=== PATIENT | female | born 1930 | race Caucasian/White ===

== ENCOUNTER → 2016-06-13 | Emergency (ER) | payer MEDICARE, OTHER ==
[~2016-06-13] MED LIST: ASPIRIN325 MG PO; BENZONATATE100 MG PO; CALCIUM WITH M1 EACH PO; CENTRUM SILVER1 TAB PO; COLACE100 MG PO; COSAMIN DS CAP1 EACH PO; CYCLOBENZAPRINE5 MG PO; DEXILANT60 MG PO; FEOSOL325 MG PO; FLONASE ALLER15.8 ML NOSE; LEVOTHROID (SY50 MCG PO; LYRICA 75MG CAP75 MG PO; LYRICA75 MG PO; MIRALAX17 GM PO; NORCO 5-325 TA1 EACH PO; PRESERVISION A1 EACH PO; TYLENOL325 MG PO; VITAMIN D31000 UNI1 PO; XARELTO10 MG PO; ZYRTEC10 MG PO
== END | disposition disaster alternative care site (69) ==
LOC: GAMB 10:42
DX: S09.90XA Unspecified injury of head, initial encounter (principal); R51 Headache; G89.11 Acute pain due to trauma; W19.XXXA Unspecified fall, initial encounter

== ENCOUNTER 2016-07-04 11:00 | Inpatient (IN) | payer MEDICARE, OTHER ==
[~2016-07-04] VITALS: Ht 154.9 cm; Wt 62.5 kg
--- NOTE | ~2016-07-04 | DS ---
PATIENT'S NAME: RONY MOURALMA Norma [facility] AGE: 85 Y [address] ROOM: [place] [address] LOCATION: [facility] ADMIT DATE: 07/16/2016 Discharge Summary DISCHARGE DATE: 07/18/2016 FAMILY PHYSICIAN: Immanuel Chaudhary MD ATTENDING PHYSICIAN: Juan Curran PRIMARY DIAGNOSIS: Degenerative joint disease of the right knee. SECONDARY DIAGNOSIS: 1. History of preoperative anemia. 2. Chronic kidney disease, stage 3. 3. Chronic obstructive pulmonary disease. 4. Gastroesophageal reflux disease. 5. History of gastrointestinal bleed. 6. Hypertension. 7. Hypothyroidism. 8. History of iron deficiency anemia. 9. History of paroxysmal atrial fibrillation. 10. History of nocturnal hypoxia. PROCEDURE PERFORMED: Right total knee arthroplasty with computer navigation. HISTORY: The patient is an 85-year-old female, who presents with advanced right knee degenerative joint disease and associated severely compromised activities of daily living. The patient has decided to proceed with total knee arthroplasty after having been thoroughly counseled regarding the risks, benefits, limitations and alternatives. Please refer to the outpatient clinic notes and admission history and physical for this patient. HOSPITAL COURSE: The patient underwent a right total knee arthroplasty on 07/16/2016 without complications. General endotracheal anesthesia plus adductor canal block plus periarticular local anesthesia was utilized. The patient received 24 hours of perioperative prophylactic antibiotics and remained hemodynamically stable, neurovascularly intact throughout the entire hospital course. The postoperative prophylactic deep venous thrombosis prophylaxis consisted of Xarelto 10 mg, early mobilization and pneumatic compression devices. Daily physical therapy for gait training, transfer training range of motion and quadriceps isometric exercises were received. The patient progressed well in physical therapy. On the date of discharge, 08/17/2016, the incision at the knee was healing well and showed no signs of infection. DISPOSITION: Home. DISCHARGE ACTIVITY: The patient is to bear weight as tolerated with range of PATIENT'S NAME: [facility]MAN [facility] AGE: 85 Y [address] ROOM: [place] [address] LOCATION: [facility] ADMIT DATE: 07/16/2016 Discharge Summary DISCHARGE DATE: 07/18/2016 FAMILY PHYSICIAN: Immanuel Chaudhary MD ATTENDING PHYSICIAN: Juan Curran motion and quadriceps isometric exercises as instructed. The operative extremity is to be elevated at least 90% of the day. There is to be sterile 4x4 gauze dressings to the incision daily. Dr. Curran is to be notified immediately if there is any increased pain, fevers, chills erythema or drainage. DISCHARGE MEDICATIONS: Include: 1. Xarelto 10 mg, take one tab p.o. daily for DVT prevention. 2. Effie 5/325, take one tab p.o. every 3 hours as needed for pain. FOLLOWUP: Followup appointment is to be with Dr. Curran on Saturday, July 23, 2016, for initial postoperative evaluation with x-rays and for staple removal. RICHARD JOHNSON FOR MD DERIK SAMUEL/markusl /[id number] d: 07/24/16 0407 t: 07/26/16 0945, DISCHARGE SUMMARY
--- NOTE | ~2016-07-04 | OR ---
PATIENT'S NAME: SABRINA MOURA [facility] AGE: 85 Y [address] ROOM: [place] [address] LOCATION: [facility] ADMIT DATE: 07/16/2016 OR/Procedure Report DISCHARGE DATE: FAMILY PHYSICIAN: Immanuel Chaudhary MD ATTENDING PHYSICIAN: AYANA WELCH SURGEON: Ayana Welch MD HOOP RIVETING MACHINE OPERATOR HELPER: 1. Clemente Diaz CST/GUZMAN. 2. Ayana Madden. DATE OF PROCEDURE: 07/16/2016 PREOPERATIVE DIAGNOSIS: Degenerative joint disease, right knee. POSTOPERATIVE DIAGNOSIS: Degenerative joint disease, right knee. OPERATION: Right total knee arthroplasty with computer navigation. ANESTHESIA: General endotracheal anesthesia plus adductor canal block plus periarticular local anesthesia (ropivacaine with epinephrine and Toradol). ESTIMATED BLOOD LOSS: Less than 10 mL. DRAIN: None. SPECIMEN: None. COMPLICATIONS: None. IMPLANT SYSTEM: Nando Triathlon. 1. Size 3 right posterior stabilized femoral component. 2. Size 2 universal modular tibial baseplate. 3. A 9 mm posterior stabilized size 2 X3 tibial polyethylene insert. 4. A 29 mm oval X3 patella component. INDICATIONS FOR SURGERY: Ms. [place] Moura is an 85-year-old female who presents with advanced right knee degenerative joint disease and associated severely compromised activities of daily living. The patient has decided to proceed with knee replacement after having been thoroughly counseled regarding the associated risks, benefits, and limitations. We have specifically reviewed the risks and implications of infection, deep venous thrombosis, pulmonary embolism, mortality, neurovascular complications, blood transfusion (and associated potential for disease transmission or transfusion reaction), stiffness, instability, mechanical deterioration of the components (due to wear and or loosening), and the potential need for revision. We have also emphasized the importance of active involvement and compliance with post- operative physical therapy as a means of optimizing range of motion and PATIENT'S NAME: S[place] MOURA [facility] AGE: 85 Y [address] ROOM: [place] [address] LOCATION: [facility] ADMIT DATE: 07/16/2016 OR/Procedure Report DISCHARGE DATE: FAMILY PHYSICIAN: Immanuel Chaudhary MD ATTENDING PHYSICIAN: AYANA WELCH functional recovery. Informed consent has been granted. DESCRIPTION OF PROCEDURE: The patient was positioned supine after administration of anesthesia and prophylactic antibiotics. A well-padded pneumatic tourniquet was placed around the right proximal thigh, and the right lower extremity was prepped and draped with vigilant sterile technique. The patient's name as well as the intended operative side and procedure were confirmed with a verbal time-out involving myself, the circulating nurse, the scrub nurse, and the anesthesiologist. Examination under anesthesia demonstrated a moderate valgus deformity. There were no active skin lesions or masses. There was a moderate effusion. There was no erythema. There was no abnormal warmth. Range of motion under anesthesia was from 6 degrees of passive hyperextension to 120 degrees of flexion. There was 5 mm of medial collateral ligament laxity. The valgus deformity was almost completely passively correctable. There was no other ligamentous laxity. The right lower extremity was elevated and exsanguinated with an Esmarch wrap, and the pneumatic tourniquet was inflated to 300mmHg. The knee was approached through a longitudinal midline incision. A medial parapatellar arthrotomy was performed and the patella was everted. Examination of the joint space demonstrated full-thickness loss of articular cartilage throughout the patella and throughout the lateral 75% of the femoral trochlea. There was extensive erosion of subchondral bone from the patella and the lateral trochlea with longitudinal subchondral striations of eburnated bone yielding a corduroy appearance. The residual [place] patella was only 10 mm thick at the lateral facet. The lateral femoral condyle was moderately hypoplastic. There was significant patella frankie. There was significant tightness of the lateral retinaculum. The anterior cruciate ligament was intact, but attenuated. The posterior cruciate ligament was intact. There was a moderate amount of benign- appearing translucent synovial fluid. There was extensive chondrocalcinosis at the residual articular cartilage at the medial aspect of the femoral trochlea. There was a moderate-sized osteophyte at the lateral margin of the patella. There were small osteophytes at the lateral femoral condyle and the lateral margin of the femoral trochlea. There was a 5 x 20 mm region of full- thickness articular cartilage loss at the lateral half of the medial femoral condyle. There was intermixed grade 3 and grade 4 articular cartilage degeneration at the posterior half of the lateral femoral condyle. There were moderate grade 3 degenerative changes involving 90% of the lateral tibial plateau. There was extensive chondrocalcinosis at the medial and lateral meniscal remnants as well as at the medial femoral condyle. There was extensive degenerative tearing involving the anterior half of the lateral meniscus. PATIENT'S NAME: SABRINA MOURA [facility] AGE: 85 Y [address] ROOM: [id number] [place], [place] [address] LOCATION: [facility] ADMIT DATE: 07/16/2016 OR/Procedure Report DISCHARGE DATE: FAMILY PHYSICIAN: Immanuel Chaudhary MD ATTENDING PHYSICIAN: AYANA WELCH Remnants of the menisci and cruciate ligaments were excised. The [employer] computer navigation femoral tracker was pinned in place at the distal aspect of the femoral trochlea. Absence of motion between the femur and the tracking device was confirmed manually and visually. Femoral osseous landmarks were obtained in order to calibrate the computer navigation system. Landmarks included the center of rotation of the ipsilateral hip, the center-point of the distal femur, the femoral AP axis, 57 points on the medial femoral condyle articular surface, and 57 points on the lateral femoral condyle articular surface. The [employer] computer navigation system was subsequently utilized to position the distal femoral resection block such that the distal femoral resection was performed perfectly perpendicular to the femoral mechanical axis. The distal femoral resection was performed with a [employer] oscillating saw. The [employer] computer navigation tibial tracker was pinned in place at the anterior aspect of the tibial plateau. Absence of motion between the tibia and the tracking device was confirmed manually and visually. Tibial osseous landmarks were obtained in order to calibrate the computer navigation system. Landmarks included the center-point of the tibial plateau, the AP tibial axis, 57 points on the medial tibial plateau articular surface, 57 points on the lateral tibial plateau articular surface, the medial malleolus, and the lateral malleolus. The [employer] computer navigation system was subsequently utilized to position the proximal tibial resection block such that the proximal tibial resection was performed perfectly perpendicular to the tibial mechanical axis. The proximal tibial resection was performed with a [employer] oscillating saw. Perpendicularity of the tibial resection with respect to the tibial shaft axis was reconfirmed by inserting a spacer- block attached to an extramedullary guide zeb. External rotation of the anterior and posterior femoral resections was set parallel to the epicondylar axis and carefully adjusted in order to create a rectangular flexion gap. The box resection was performed with a reciprocating saw. Anterior and posterior chamfer resections were performed with the oscillating saw. Posterior condyle osteophytes were excised with an osteotome. All other osteophytes were excised with a rongeur. Resection of all remnants of the menisci was reconfirmed. Flexion and extension gaps were confirmed to be symmetric and well balanced with a spacer-block technique. The patella resection was performed with an oscillating saw such that the composite thickness of the reconstructed patella was equivalent to the thickness of the [place] patella. Patella tracking was confirmed to be optimal. A lateral retinacular release was required in order to optimize patella tracking. PATIENT'S NAME: SABRINA MOURA [facility] AGE: 85 Y [address] ROOM: [address] [address] LOCATION: [facility] ADMIT DATE: 07/16/2016 OR/Procedure Report DISCHARGE DATE: FAMILY PHYSICIAN: Immanuel Chaudhary MD ATTENDING PHYSICIAN: AYANA WELCH All trial components were removed and all prepared osseous surfaces were thoroughly irrigated with pulsatile saline lavage and dried prior to cementing all three components in a single stage using [employer] Simplex cement containing pre-mixed tobramycin. All extruded excess cement was removed. The entire joint space was thoroughly inspected and thoroughly irrigated with bacteriostatic pulsatile saline lavage to assure that there was no residual debris of any sort. Final range of motion was from full extension (with no residual passive hyperextension) to 120 degrees of flexion. Patella tracking was reconfirmed to be optimal. There was very good anteroposterior stability at 90 degrees of flexion. There was 1.5 mm of medial lift-off to valgus stress in full extension. There was 1 mm of lateral lift-off to varus stress in full extension. The arthrotomy was closed with multiple simple and [id number] interrupted #1 Vicryl. Subcutaneous tissues were thoroughly re-irrigated with bacteriostatic pulsatile saline lavage. Subcutaneous tissues were re- approximated with simple buried interrupted #0 Vicryl sutures. The skin was closed with simple buried interrupted 2-0 Vicryl sutures followed by surgical brenda. The dressing consisted of Xeroform gauze, 4x4 gauze, ABD pads and two 6-inch Ariel Wraps. There were no intra-operative complications. MD BRUCE SAMUEL/grace /[id number] d: 07/16/16 1731 t: 07/24/16 0715, OPERATIVE SUMMARY
[~2016-07-04 11:00] MED LIST changes: -COLACE100 MG PO; -FEOSOL325 MG PO; -MIRALAX17 GM PO; -NORCO 5-325 TA1 EACH PO; -TYLENOL325 MG PO; -XARELTO10 MG PO
--- NOTE | 2016-07-16 16:02 | NUR ---
PATIENT RETURNED FROM PACU AT 1215. VSS. O2 AT 4L/MIN TO MAINTAIN SATS. PATIENT HAS HX OF SLEEP APNEA. CSM ADEQUATE. NILSON WRAP D/I. NORCO ONE TAB AT 1445. UP TO CHAIR. HAD GENERAL ANESTHESIA. PERIODS OF FORGETFULLNESS, ORIENATED. FAMILY IN ROOM.
--- NOTE | 2016-07-17 03:52 | NUR ---
Patient VS stable throughout shift. Back pain relieved by tylenol. Family reports patient has sleep apnea. Patient on 2L 02. Started on ETCO2 at 1930. Can dorsiflex, plantarflex and wiggle toes appropriately. Patient up to comode 2X and voided 380mls in total. At 0100 patient experiences knee jerks on left knee and tingling on both toes. Valium given for this. Last dose of tylenol at 0003.
[2016-07-17 06:58] LABS: BASOPHIL % 0.3 %; EOSINOPHIL # 0.1 K/uL (0.0-0.5); EOSINOPHIL % 0.4 %; HEMOGLOBIN 7.5 g/dL (10.0-15.0); IMMATURE GRANULOCYTE # 0.1 K/uL (0.0-0.3); IMMATURE GRANULOCYTE % 0.5 %; LYMPHOCYTE # 1.4 K/uL (0.8-4.0); LYMPHOCYTE % 12.4 %; MCH 26.1 pg (27.0-34.0); MCHC 31.3 gm/dL (32.0-36.5); MCV 83.6 fl (83.0-98.0); MONOCYTE # 0.9 K/uL (0.0-1.0); MONOCYTE % 7.4 %; NEUTROPHIL # (ANC) 9.2 K/uL (1.8-7.8); NRBC % 0 /100WBC (0-0.00); PLATELET COUNT 239 K/uL (150-450); RBC 2.87 M/uL (3.00-5.00); RDW-CV 14.9 % (11.9-14.6); WBC 11.6 K/uL (4.0-11.0)
--- NOTE | 2016-07-17 11:50 | NUR ---
Introduced self/role to patient. She stated she has all the DME she will need and has plenty of family around to assist her. Wrote my name on her marker board, will continue to follow.
--- NOTE | 2016-07-17 17:01 | NUR ---
PATIENT DOING WELL. CSM ADEQUATE. WEARS O2 AT NIGHT 2L/MIN. KPAD TO LEFT SHOULDER FOR DISCOMFORT. ONE UNIT OF BLOOD TODAY FOR HGB 7.5. PLANS ON GOING HOME WITH DAUGHTER TOMORROW. DRESSING D/I. AMBULATED TO BR.
--- NOTE | 2016-07-18 05:08 | NUR ---
Significant Event: Dressing is clean, dry and intact. CSM WNL. Voids without difficulty. Refused Miralax. 1 assist with transfers. Valium 2.5mg at 0016. Dilaudid IV at 0017. Wears 2 L of oxygen at night. Toes are numb, patient states that this is not new. Follow up:
[2016-07-18 05:34] LABS: BASOPHIL % 0.5 %; EOSINOPHIL # 0.1 K/uL (0.0-0.5); EOSINOPHIL % 1.7 %; HEMATOCRIT 26.5 % (30.0-46.0); HEMOGLOBIN 8.6 g/dL (10.0-15.0); IMMATURE GRANULOCYTE % 0.4 %; LYMPHOCYTE # 1.2 K/uL (0.8-4.0); LYMPHOCYTE % 14.9 %; MCHC 32.5 gm/dL (32.0-36.5); MCV 83.1 fl (83.0-98.0); MONOCYTE # 1.1 K/uL (0.0-1.0); MPV 9.9 fl (9.4-12.4); NEUTROPHIL # (ANC) 5.4 K/uL (1.8-7.8); NEUTROPHIL % 68.5 %; NRBC % 0 /100WBC (0-0.00); PLATELET COUNT 206 K/uL (150-450); RBC 3.19 M/uL (3.00-5.00); RDW-CV 15.2 % (11.9-14.6); WBC 7.8 K/uL (4.0-11.0)
[2016-07-18 05:47] LABS: ANION GAP 13.2 (10.0-19.0); CALCIUM 8.2 mg/dL (8.5-10.5); CREATININE 1.2 mg/dL (0.5-1.1); POTASSIUM 4.2 mMol/L (3.7-5.1)
[2016-07-18] MEDS ORDERED: COLACE100 MG PO (14:52)
[2016-07-18] MEDS ORDERED: MIRALAX17 GM PO (14:55)
[2016-07-18] MEDS ORDERED: XARELTO10 MG PO (14:56)
[2016-07-18] MEDS ORDERED: TYLENOL325 MG PO (14:57)
[2016-07-18] MEDS ORDERED: FEOSOL325 MG PO (14:58)
[2016-07-18] MEDS ORDERED: NORCO 5-325 TA1 EACH PO (15:13)
--- NOTE | 2016-07-18 17:51 | NUR ---
Discharge instructions given to patient and her daughter. Reviewed all medications, care of dressing, s/s infection, when to call md, f/u appt, O2 @ home: 1 L during day, 2L @ hs. Has O2 @ home already. All belongings sent with patient. All questions answered. Encouraged to call md with any questions. Daughter voices understanding of all insturctions. States she has attended class and talked with
== END 2016-07-18 17:08 | disposition disaster alternative care site (69) | DRG 470 ==
LOC: G3N 07-16 06:16
PROVIDERS: Family Medicine; ADMIT Orthopaedic Surgery
PROC: 0SRC0J9 Replacement of Right Knee Joint with Synthetic Substitute, Cemented, Open Approach (ICD-10-PCS; principal; 2016-07-16)
DX: M17.11 Unilateral primary osteoarthritis, right knee (principal); G47.34 Idiopathic sleep related nonobstructive alveolar hypoventilation; I48.0 Paroxysmal atrial fibrillation; J44.9 Chronic obstructive pulmonary disease, unspecified; E03.9 Hypothyroidism, unspecified; K21.9 Gastro-esophageal reflux disease without esophagitis; I12.9 Hypertensive chronic kidney disease with stage 1 through stage 4 chronic kidney disease, or unspecified chronic kidney disease; N18.3 Chronic kidney disease, stage 3 (moderate); D50.9 Iron deficiency anemia, unspecified; Z79.01 Long term (current) use of anticoagulants
CPT/HCPCS: C1713; C1776; J0690; J1100; J1170; J1885; J2001; J2250; J2795; J3010; J7050; J7120; P9016

== ENCOUNTER → 2016-07-05 | Outpatient (CLI) | payer MEDICARE, OTHER ==
[~2016-07-05] MED LIST changes: +COLACE100 MG PO; +FEOSOL325 MG PO; +MIRALAX17 GM PO; +NORCO 5-325 TA1 EACH PO; +TYLENOL325 MG PO; +XARELTO10 MG PO
== END | disposition disaster alternative care site (69) ==
LOC: GNJRC 10:11
DX: Z01.812 Encounter for preprocedural laboratory examination (principal); M17.11 Unilateral primary osteoarthritis, right knee

== ENCOUNTER → 2016-07-27 | Emergency (ER) | payer MEDICARE, OTHER | END | disposition disaster alternative care site (69) | LOC: GAMB 07:10 | DX: R53.1 Weakness (principal); Z98.890 Other specified postprocedural states ==

== ENCOUNTER → 2016-12-09 | Outpatient (CLI) | payer MEDICARE, OTHER | END | disposition disaster alternative care site (69) | LOC: GRAD 12:59 | DX: M25.561 Pain in right knee (principal); M25.461 Effusion, right knee; Z96.651 Presence of right artificial knee joint ==